=== PATIENT | male | born 1975 | race Hispanic/Latino ===

== ENCOUNTER 2024-08-08 20:02 | Emergency (ER) | payer SELFPAY ==
--- NOTE | 2024-08-08 22:30 | RAD REPORT ---
Abdomen Exam Limited: 08/08/2024 10:21 PM CLINICAL HISTORY: EPIGASTRIC PAIN STUDY: Limited right upper quadrant ultrasound of abdomen. COMPARISON: None. FINDINGS: Liver: Limited evaluation. Hepatic steatosis likely present. Bile ducts: No intrahepatic or extrahepatic biliary ductal dilatation. Common bile duct measures 3 mm. Gallbladder: Normal. IMPRESSION: Unremarkable exam.
[2024-08-08] MEDS ORDERED: ONDANSETRON 4 MG/2 ML VIAL ONE (23:11)
[2024-08-08] MEDS ORDERED: FAMOTIDINE 20 MG/2 ML VIAL IV ONE (23:12)
[2024-08-08] MEDS ORDERED: MAGNES/ALUMIN/SIMET 30ML UCUP ONE (23:12)
[2024-08-08] MEDS ORDERED: KETOROLAC 30 MG/ML INJ ONE (23:12)
[2024-08-08] MEDS ORDERED: HYDRALAZINE HCL 20 MG/ML VIAL ONE (23:12)
[2024-08-08] MEDS ORDERED: NA CHLORIDE 0.9% 1,000 ML ONE (23:13)
[2024-08-08] MEDS ORDERED: LIDOCAINE VISCOUS 2% 10ML ORAL SOLN ONE (23:14)
[2024-08-08 23:40] LABS: Absolute Lymphocytes (CBC) 0.6 K/uL (0.7-4.9); Absolute Monocytes 0.3 K/uL (0.1-1.3); Absolute Neutrophil 10.2 K/uL (1.8-8.0); Basophils % 0.3 % (0-1.3); Hematocrit 42.3 % (39.6-49.0); Hemoglobin 14.5 g/dL (13.6-17.9); Lymphocytes % 5.1 % (15.3-44.8); MCH 29.9 pg (27.0-35.0); MCHC 34.3 g/dL (32.0-36.0); MCV 87.3 fL (80-100); MPV 8.2 fL (7.6-11.3); Monocytes % 2.3 % (3.3-12.3); Neutrophils % 92.3 % (41.7-73.7); Nucleated Red Blood Cells % 0.1 % (0-0); Platelets 204 thou/uL (152-406); RBC Red Blood Cell Count 4.84 M/uL (4.33-5.43); Red Cell Distribution Width 13.8 % (12.1-15.2)
[2024-08-08 23:55] LABS: Albumin 3.7 g/dL (3.4-5.0); Anion Gap 11.7 mEq/L (5.0-15.0); Bilirubin Total 0.5 mg/dL (0.2-1.0); Globulin 3.6 g/dL (2.3-3.5); Potassium 3.7 mEq/L (3.5-5.1); Protein, Total 7.3 g/dL (6.4-8.2); Troponin High Sensitivity 13.7 pg/mL (<58.9)
[2024-08-09] MEDS ORDERED: lisinopriL 10 MG TAB ONE (00:18)
--- NOTE | 2024-08-09 01:00 | ER ---
Nurse's Notes [facility] Name: Rick Lopez Age: 49 yrs Sex: Male : 1975 Arrival Date: 08/08/2024 Time: 20:02 Bed 7 Private MD: Diagnosis: Headache;Epigastric pain;Hypertensive heart disease without heart failure Presentation: 08/08 21:19 Chief complaint: Patient states: HEADACHE, AB PAIN EPIGASTRIC, ..ELEVATED B/P HAS BEEN br2 OUT OF MEDS. Coronavirus screen: Client denies travel out of the [place] in the last 14 days. Ebola Screen: Patient denies exposure to infectious person. Initial Sepsis Screen: Does the patient meet any 2 criteria? No. Patient's initial sepsis screen is negative. Does the patient have a suspected source of infection? No. Patient's initial sepsis screen is negative. Risk Assessment: Do you want to hurt yourself or someone else? Patient reports no desire to harm self or others. Onset of symptoms was August 08, 2024 at 18:00. 21:19 Method Of Arrival: Ambulatory br2 21:19 Acuity: PELON 3 br2 Triage Assessment: 21:23 Headache History: The patient has had previous headaches and this one is similar to br2 previous episodes. General: Appears in no apparent distress. uncomfortable, Behavior is calm, cooperative. Pain: Complains of pain in forehead, left side of the back of head, left temporal area, left occipital area and right temporal area Pain currently is 10 out of 10 on a pain scale. Pain began 3 hours ago. Neuro: Dailey Agitation-Sedation Scale (RASS): 0 - Alert and Calm Level of Consciousness is awake, alert, obeys commands, Oriented to person, place, time, situation. Historical: - Allergies: 21:23 No Known Allergies; br2 - PMHx: 21:23 Hypertensive disorder; br2 - Immunization history:: Adult Immunizations not up to date. - Infectious Disease History:: Denies. - Social history:: Smoking status: Patient denies any tobacco usage or history of. Patient uses alcohol, but reports only rare drinking. Patient/guardian denies using street drugs. Screenin:58 [facility] ED Fall Risk Assessment (Adult) History of falling in the last 3 months, jb4 including since admission No falls in past 3 months (0 pts) Confusion or Disorientation No (0 pts) Intoxicated or Sedated No (0 pts) Impaired Gait No (0 pts) Mobility Assist Device Used No (0 pt) Altered Elimination No (0 pt) Score/Fall Risk Level 0 - 2 = Low Risk Oriented to surroundings, Maintained a safe environment. Abuse screen: Denies threats or abuse. Nutritional screening: No deficits noted. Tuberculosis screening: No symptoms or risk factors identified. Assessment: 22:58 General: Appears in no apparent distress. comfortable, Behavior is calm, cooperative, jb4 appropriate for age. Pain: Complains of pain in abdomen Pain does not radiate. Pain currently is 10 out of 10 on a pain scale. Neuro: Level of Consciousness is awake, alert, obeys commands, Oriented to person, place, time, situation. Cardiovascular: Patient's skin is warm and dry. Respiratory: Airway is patent Respiratory effort is even, unlabored, Respiratory pattern is regular, symmetrical. Derm: Skin is intact, Skin is pink, warm \T\ dry. Musculoskeletal: Circulation, motion, and sensation intact. Range of motion: intact in all extremities. 08/09 00:00 Reassessment: Patient appears in no apparent distress at this time. Patient and/or jb4 family updated on plan of care and expected duration. Pain level reassessed. Patient is alert, oriented x 3, equal unlabored respirations, skin warm/dry/pink. 01:39 Reassessment: Patient appears in no apparent distress at this time. Patient and/or jb4 family updated on plan of care and expected duration. Pain level reassessed. Patient is alert, oriented x 3, equal unlabored respirations, skin warm/dry/pink. Vital Signs: 08/08 21:19 BP 161 / 105; Pulse 65; Resp 18; Temp 97.2; Pulse Ox 100% on R/A; Weight 72.57 kg; br2 Height 5 ft. 7 in. ; Pain 10/10; 22:46 BP 149 / 99 LA Supine (auto/reg); Pulse 76; Temp 97.5(O); Pulse Ox 100% on R/A; Weight sa1 84.82 kg (M); 08/09 00:42 BP 125 / 86; Pulse 80; Resp 16; Pulse Ox 99% on R/A; jb4 01:39 BP 130 / 87; Pulse 78; Resp 16; Pulse Ox 98% on R/A; jb4 08/08 21:19 Body Mass Index 25.06 (84.82 kg, 170.18 cm) br2 08/08 21:19 Pain Scale: Adult br2 ED Course: 08/08 20:47 Patient arrived in ED. al6 21:00 Mustapha Grimm PA is PHCP. cp 21:00 Betito Calhoun MD is Attending Physician. cp 21:23 Triage completed. br2 21:23 Arm band placed on. br2 22:23 US Abdomen Limited In Process Unspecified. EDMS 22:39 Constantino Tracy, RN is Primary Nurse. jb4 22:55 No provider procedures requiring assistance completed. Inserted saline lock: 18 gauge jb4 in right antecubital area, using aseptic technique. Flushed with 10 mL NS. 22:56 XRAY Chest (1 view) In Process Unspecified. EDMS 22:56 Lipase Sent. jb4 22:56 CMP Sent. jb4 22:56 CBC with Diff Sent. jb4 22:58 Patient has correct armband on for positive identification. Bed in low position. Call jb4 light in reach. Side rails up X 1. Provided Education on: plan of care. 22:58 EKG done, by ED staff, reviewed by Mustapha SYNDER. sa1 23:03 CT Head Brain wo Cont In Process Unspecified. EDMS 08/09 01:39 IV discontinued, intact, bleeding controlled, No redness/swelling at site. Pressure jb4 dressing applied. Administered Medications: 08/08 23:26 Drug: Famotidine IVP 20 mg IVP once; dilute with 10 mL 0.9% NaCl; give over 2 minutes jb4 Route: IVP; Site: right antecubital; 23:26 Drug: TORadol - Ketorolac IVP 15 mg IVP once Route: IVP; Site: right antecubital; jb4 23:26 Drug: Ondansetron IVP 4 mg IVP once; over 2 minutes Route: IVP; Site: right antecubital;jb4 23:26 Drug: NS 0.9% IV 1000 ml IV at 1 bolus Per protocol; to be given as a bolus over 60 jb4 minutes Route: IV; Rate: 1 bolus; Site: right antecubital; 23:26 Not Given (Duplicate Order): GI Cocktail with - (maaloxsuspension 30 ml, jb4 lidocaine mucous membrane liquid 2 % 20 ml, phenobarbital-[id number] ml) PO once 23:26 Drug: GI Cocktail without - (Maalox PO 30 ml, Lidocaine Mucous Membrane 2 % 15 jb4 ml) PO once Route: PO; 08/09 00:17 CANCELLED (Physician Discretion): [id number] mg PO once cp 00:22 Not Given (Hemodynamic Parameters): hydralazine5 mg IVP once; if systolic pressure jb4 above 160 00:22 Drug: Lisinopril PO 10 mg PO once Route: PO; jb4 Medication: 08/08 22:58 VIS not applicable for this client. jb4 Outcome: 08/09 01:00 Discharge ordered by . cp 01:39 Discharged to home ambulatory, jb4 01:39 Condition: stable 01:39 Discharge instructions given to patient, Instructed on discharge instructions, follow up and referral plans. medication usage, Demonstrated understanding of instructions, follow-up care, medications, Prescriptions given X 2, 01:43 Patient left the ED. jb4 Signatures: Dispatcher [employer] EDMS Mustapha Grimm PA PA cp Bryson, James, RN RN jb4 Sultan Alexa sa1 Gwen Saravia RN RN br2 Aleta Mancia6 Corrections: (The following items were deleted from the chart) 08/08 23:14 22:56 Troponin High Sensitivity+C.LAB.BRZ drawn and sent. jb4 EDMS
--- NOTE | 2024-08-09 01:00 | EDPHYS ---
Physician Documentation [facility] Name: Rick Lopez Age: 49 yrs Sex: Male : 1975 Arrival Date: 08/08/2024 Time: 20:02 Bed 7 Private MD: ED Physician Betito Calhoun HPI: 08/08 21:25 This 49 yrs old Male presents to ER via Ambulatory with complaints of High cp Blood Pressure, Headache. 21:25 The patient has elevated blood pressure and discovered this at home. cp 21:25 Onset: The symptoms/episode began/occurred gradually, ran out of blood pressure cp medication. Associated signs and symptoms: Pertinent positives: headache, nausea, epigastric pain, Pertinent negatives: chest pain, vomiting. Severity of symptoms: in the emergency department the blood pressure is unchanged, despite home interventions. Historical: - Allergies: 21:23 No Known Allergies; br2 - PMHx: 21:23 Hypertensive disorder; br2 - Immunization history:: Adult Immunizations not up to date. - Infectious Disease History:: Denies. - Social history:: Smoking status: Patient denies any tobacco usage or history of. Patient uses alcohol, but reports only rare drinking. Patient/guardian denies using street drugs. ROS: 21:30 Constitutional: Negative for body aches, chills, fever, poor PO intake, cp 21:30 Eyes: Negative for injury, pain, redness, and discharge, cp 21:30 ENT: Negative for drainage from ear(s), ear pain, sore throat, difficulty swallowing, difficulty handling secretions, 21:30 Cardiovascular: Negative for chest pain, edema, palpitations, 21:30 Respiratory: Negative for cough, shortness of breath, wheezing, 21:30 Abdomen/GI: Positive for abdominal pain, nausea, of the epigastric area, Negative for vomiting, diarrhea, constipation, anorexia, hematemesis, 21:30 Neuro: Positive for headache, Negative for altered mental status, numbness, syncope, near syncope, weakness, 21:30 All other systems are negative, Exam: 21:33 Constitutional: The patient appears in no acute distress, alert, awake, cp non-diaphoretic, non-toxic, well developed, well nourished, overweight 21:33 Head/Face: Normocephalic, atraumatic. cp 21:33 Eyes: Periorbital structures: appear normal, Pupils: equal, round, and reactive to light and accomodation, Extraocular movements: intact throughout, Conjunctiva: normal, no exudate, no injection, Sclera: no appreciated abnormality, Lids and lashes: appear normal, bilaterally, 21:33 ENT: External ear(s): are unremarkable, Nose: is normal, Mouth: Lips: moist, Oral mucosa: moist, Posterior pharynx: Airway: no evidence of obstruction, patent, 21:33 Chest/axilla: Inspection: normal, 21:33 Cardiovascular: Rate: normal, Rhythm: regular, Edema: is not appreciated, JVD: is not appreciated, 21:33 Respiratory: the patient does not display signs of respiratory distress, Respirations: normal, no use of accessory muscles, no retractions, labored breathing, is not present, Breath sounds: are clear throughout, no decreased breath sounds, no stridor, no wheezing, 21:33 Abdomen/GI: Inspection: abdomen appears normal, Bowel sounds: active, all quadrants, Palpation: soft, in all quadrants, moderate abdominal tenderness, in the epigastric area, rebound tenderness, is not appreciated, involuntary guarding, is not appreciated, 21:33 Back: pain, is absent, ROM is normal, 21:33 Skin: no rash present. 21:33 Neuro: Orientation: to person, place \T\ time. Mentation: is normal, Cerebellar function: Romberg testing is negative, Motor: moves all fours, strength is normal, Sensation: no obvious gross deficits, Gait: is steady, at a normal pace, without difficulty, 23:00 ECG was reviewed by the Attending Physician. cp Vital Signs: 21:19 BP 161 / 105; Pulse 65; Resp 18; Temp 97.2; Pulse Ox 100% on R/A; Weight 72.57 kg; br2 Height 5 ft. 7 in. ; Pain 10/10; 22:46 BP 149 / 99 LA Supine (auto/reg); Pulse 76; Temp 97.5(O); Pulse Ox 100% on R/A; Weight sa1 84.82 kg (M); 08/09 00:42 BP 125 / 86; Pulse 80; Resp 16; Pulse Ox 99% on R/A; jb4 01:39 BP 130 / 87; Pulse 78; Resp 16; Pulse Ox 98% on R/A; jb4 08/08 21:19 Body Mass Index 25.06 (84.82 kg, 170.18 cm) br2 08/08 21:19 Pain Scale: Adult br2 MDM: 08/08 21:22 Medical Screening Exam initiated cp 08/09 01:00 Data reviewed: vital signs, nurses notes, lab test result(s), EKG, radiologic studies, cp plain films, ultrasound, and as a result, I will discharge patient. 01:00 Differential diagnosis: hypertensive crisis, Malignant HTN, CVA, intracerebral cp hemorrhage. I considered the following discharge prescriptions or medication management in the emergency department Medications were administered in the Emergency Department. See MAR. Independent interpretation of the following test(s) in the Emergency Department EKG: See my EKG interpretation above. Care significantly affected by the following chronic conditions: Hypertension. Counseling: I had a detailed discussion with the patient and/or guardian regarding the historical points, exam findings, and any diagnostic results supporting the discharge/admit diagnosis, the presence of at least one elevated blood pressure reading (>120/80) during this emergency department visit, lab results, radiology results, the need for outpatient follow up, a family practitioner, to return to the emergency department if symptoms worsen or persist or if there are any questions or concerns that arise at home. Response to treatment: the patient's symptoms have markedly improved after treatment, and as a result, I will discharge patient. 08/08 21:23 Order name: CBC with Diff 08/09 00:55 Interpretation: Normal except: WBC 11.10; RENATO% 92.3; LYM% 5.1; MN% 2.3; NEUT A 10.2; cp LYMA 0.6. 08/08 21:23 Order name: CMP; Complete Time: 00:13 cp 08/09 00:13 Interpretation: Normal except: CL 108; GLUC 145; CRE 1.33; GFR 66; GLOB 3.6; A/G 1.0. cp 08/08 21:23 Order name: Lipase; Complete Time: 00:13 cp 08/08 23:14 Order name: Troponin High Sensitivity; Complete Time: 00:13 EDMS 08/08 23:51 Order name: Manual Differential EDMS 08/08 21:23 Order name: US Abdomen Limited; Complete Time: 22:38 cp 08/08 22:39 Order name: CT Head Brain wo Cont cp 08/08 22:39 Order name: XRAY Chest (1 view) 08/08 21:23 Order name: EKG; Complete Time: 21:24 cp 08/08 21:23 Order name: IV Saline Lock; Complete Time: 22:56 cp 08/08 21:23 Order name: Labs collected and sent; Complete Time: 22:56 cp 08/08 21:23 Order name: EKG - Nurse/Tech; Complete Time: 22:54 cp EC/19 23:00 Rate is 76 beats/min. Rhythm is regular. CA interval is normal. QRS interval is normal. cp QT interval is normal. T waves are Inverted in lead aVR. Interpreted by me. Reviewed by me. Administered Medications: 23:26 Drug: Famotidine IVP 20 mg IVP once; dilute with 10 mL 0.9% NaCl; give over 2 minutes jb4 Route: IVP; Site: right antecubital; 23:26 Drug: TORadol - Ketorolac IVP 15 mg IVP once Route: IVP; Site: right antecubital; jb4 23:26 Drug: Ondansetron IVP 4 mg IVP once; over 2 minutes Route: IVP; Site: right antecubital;jb4 23:26 Drug: NS 0.9% IV 1000 ml IV at 1 bolus Per protocol; to be given as a bolus over 60 jb4 minutes Route: IV; Rate: 1 bolus; Site: right antecubital; 23:26 Not Given (Duplicate Order): GI Cocktail with - (maaloxsuspension 30 ml, jb4 lidocaine mucous membrane liquid 2 % 20 ml, phenobarbital-[id number] ml) PO once 23:26 Drug: GI Cocktail without - (Maalox PO 30 ml, Lidocaine Mucous Membrane 2 % 15 jb4 ml) PO once Route: PO; 08/09 00:17 CANCELLED (Physician Discretion): [id number] mg PO once cp 00:22 Not Given (Hemodynamic Parameters): hydralazine5 mg IVP once; if systolic pressure jb4 above 160 00:22 Drug: Lisinopril PO 10 mg PO once Route: PO; jb4 Disposition: 02:18 Co-signature as Attending Physician, Betito Calhoun MD I agree with the assessment sp4 and plan of care. I reviewed the patient's care provided by Advanced Practice Provider \T\ agree w/ the diagnosis \T\ care plan. I personally saw the pt \T\ performed a substantive portion of the visit, incldng all aspects of the (History/Exam/Medical Decision Making). Disposition Summary: 08/09/24 01:00 Discharge Ordered Notes: Location: Home cp Problem: new cp Symptoms: have improved cp Condition: Stable cp Diagnosis - Headache cp - Epigastric pain cp - Hypertensive heart disease without heart failure cp Followup: cp - With: Private Physician - When: 5 - 6 days - Reason: Recheck today's complaints Discharge Instructions: - Discharge Summary Sheet cp - Gastroesophageal Reflux Disease, Adult cp - Hypertension, Adult cp - Aspirin and Your Heart cp - Form - Blood Pressure Record Sheet cp - How to Take Your Blood Pressure cp Forms: - Medication Reconciliation Form cp - Antibiotic Education cp - Prescription Opioid Use cp - Patient Portal Instructions cp - Leadership Thank You Letter cp Prescriptions: - Protonix 40 mg Oral Tablet - take 1 tablet ORAL route once daily; 30 tablet; Refills: 0, Product Selection cp Permitted - Lisinopril 10 mg Oral tablet - take 1 tablet ORAL route once daily; 30 tablet; Refills: 0, Product Selection cp Permitted Signatures: Dispatcher [employer] EDMS Mustapha Grimm PA PA cp Constantino Tracy, RN RN jb4 Betito Calhoun MD MD sp4 Gwen Saravia RN RN br2 Corrections: (The following items were deleted from the chart) 08/08 22:40 22:40 Head Brain Wo Cont+CT.RAD.BRZ ordered. EDMS EDMS 22:40 22:40 Chest Single View+RAD.RAD.BRZ ordered. EDMS EDMS 23:14 22:40 Troponin High Sensitivity+C.LAB.BRZ ordered. EDMS EDMS 08/09 00:17 00:13 Lisinopril PO 20 mg PO once ordered. cp cp
[2024-08-09 01:13] LABS: Band Neutrophils 6 % (0-1); Differential Total Cells Count 100; Lymphocytes 1 % (15-42); Monocytes 1 % (0-10); Segmented Neutrophils 92 % (40-80)
[2024-08-09 01:14] LABS: Blood Morphology Comment NOT SEEN (NOT SEEN); Platelet Estimate ADEQ
--- NOTE | 2024-08-09 01:34 | RAD REPORT ---
CLINICAL HISTORY: Headache. COMPARISON: None. TECHNIQUE: CT HEAD WITHOUT IV CONTRAST on 08/08/2024 10:40 PM CDT This exam was performed according to our departmental dose-optimization program, which includes autom ated exposure control, adjustment of the mA and/or kV according to patient size and/or use of iterative reconstruction technique. FINDINGS: There is no acute hemorrhage, mass effect or midline shift. Zeng-white differentiation is preserved. There is no hydrocephalus. There is no significant volume loss for age. The calvarium is intact. Orbits and globes are unremarkable. The paranasal sinuses are clear. Mastoid air cells are clear. IMPRESSION: No acute intracranial findings. Electronically signed by: Julien Reed MD 08/08/2024 11:41 PM CDT RP Due to temporary technical issues with the PACS/[employer] reporting system, reports are being dannie d by the in-house radiologist without review as a courtesy to ensure prompt reporting the interpreting radiologist is fully responsible for the content of the report. Transcribed Date/Time: 08/09/2024 1:33 AM
[2024-08-09 02:11] VITALS: TEMP 97.5
[2024-08-09 02:15] VITALS: BP 130/87; O2SAT 98
--- NOTE | 2024-08-09 13:37 | RAD REPORT ---
EXAM: Chest Single View HISTORY: 49 years Male epigastric pain COMPARISON: None. FINDINGS: LUNGS/PLEURA: The lungs are clear. No pleural effusions or pneumothorax. No pulmonary edema. CARDIAC/MEDIASTINUM: The cardiac silhouette is within normal limits. UPPER ABDOMEN: No significant abnormality. BONES: No acute abnormality. LINES/TUBES/OTHER: N/A IMPRESSION: No evidence of acute cardiopulmonary disease.
== END 2024-08-09 01:43 | disposition home or self-care (01) ==
LOC: ER 20:02
DX: R51.9 Headache, unspecified (principal); R10.13 Epigastric pain; I11.9 Hypertensive heart disease without heart failure
CPT/HCPCS: 36415; 70450; 71045; 76705; 80053; 83690; 84484; 85025; 93005; J0360; J2405; J7030